=== PATIENT | male | born 1935 | race Caucasian/White ===

== ENCOUNTER 2017-06-03 10:32 | Inpatient (IN) | payer MEDICARE, OTHER ==
[2017-06-03] MEDS ORDERED: PEG 400/Propylene Glycol Ophth Soln 15 ML Bottle EYERT PRN (14:00)
[2017-06-03] MEDS: Acetaminophen 325 MG Tab PO SCH ×2 (14:41→20:58)
[2017-06-03] MEDS: oxyCODONE 5 MG Tab PO PRN (15:46)
[2017-06-03] MEDS ORDERED: Aluminum Hydroxide/Magnesium Hydroxide Susp 30 ML Cup PO PRN (17:12)
[2017-06-03] MEDS: metFORMIN 500 MG Tab.ER PO SCH (18:39)
[2017-06-03] MEDS: Finasteride 5 MG Tab PO SCH (20:58)
[2017-06-03] MEDS: atorvaSTATin 40 MG Tab PO SCH (20:58)
[2017-06-03] MEDS: Aspirin 325 MG Tab.EC PO SCH (20:59)
[2017-06-03] MEDS: ClonazePAM 0.5 MG Tab PO SCH (20:59)
[2017-06-03] MEDS: Sertraline 50 MG Tab PO SCH (21:00)
[2017-06-04] MEDS: oxyCODONE 5 MG Tab PO PRN ×2 (00:34→07:04)
[2017-06-04] MEDS: Acetaminophen 325 MG Tab PO SCH ×4 (01:26→19:08)
[2017-06-04] MEDS: Pantoprazole 40 MG Tab.CR PO SCH (05:42)
[2017-06-04] MEDS: metFORMIN 500 MG Tab.ER PO SCH ×2 (08:01→17:29)
[2017-06-04] MEDS: Celecoxib 200 MG Cap PO SCH (08:01)
[2017-06-04] MEDS: Aspirin 325 MG Tab.EC PO SCH ×2 (08:03→21:04)
[2017-06-04] MEDS: Propranolol 60 MG Cap.ER PO SCH (08:04)
[2017-06-04] MEDS: Tamsulosin 0.4 MG Cap.ER PO SCH (08:04)
[2017-06-04] MEDS: Sertraline 100 MG Tab PO SCH (08:06)
[2017-06-04] MEDS: Multivitamins, Therapeutic with Minerals Tab PO SCH (08:06)
[2017-06-04] MEDS: Insulin Detemir 100 Units/ML 3 ML Pen SUBCUT SCH (08:48)
[2017-06-04] MEDS: ClonazePAM 0.5 MG Tab PO SCH ×2 (08:48→21:07)
--- NOTE | 2017-06-04 08:51 | PCM.HP ---
H&P History of Present Illness - General Date of Service: 06/04/17 Admit Problem/Dx: Admission Diagnosis/Problem Admission Diagnosis/Problem Knee pain Source of Information: Patient History Limitations: Reports: No Limitations - History of Present Illness Initial Comments - Free Text/Narative: 81-year-old male admitted to swing bed yesterday for rehabilitation. He had right hip arthroplasty. Postoperatively he had anemia which did not need transfusion, and hypertension necessitating holding off on lisinopril hydrocodone Dyazide. He has a history of chronic disease stable, essential hypertension stable fibromyalgia long-standing, occasional headaches and essential tremors. These have all been well controlled. This morning he complains of constipation likely due to opioid use,would like to continue with MiraLAX DENIES ANY PAIN AT PRESENT TIME WHEN ASKED. Pain Score (Numeric/FACES): 0 GI pain Pain Score (Numeric/FACES): 5 R knee Pain Score (Numeric/FACES): 4 - Related Data Allergies/Adverse Reactions: Allergies Allergy/AdvReac Type Severity Reaction Status Date / Time No Known Allergies Allergy Verified 06/03/17 10:46 Home Medications: Home Meds Multivit-Min/FA/Lycopene/Lut [Centrum Silver Tablet] 1 tab PO DAILY 07/30/16 [ History] Propranolol [Inderal LA] 120 mg PO DAILY 07/30/16 [History] Propylene Glycol/PEG 400/Pf [Systane 0.3-0.4% Eye Drops] 1 drop EYERT Q4HR PRN 07/30/16 [History] Sertraline [Zoloft] 100 mg PO DAILY 07/30/16 [History] amLODIPine [Norvasc] 5 mg PO DAILY 07/30/16 [History] Acetaminophen [Tylenol] 650 mg PO Q6H 06/03/17 [History] Aspirin [Ecotrin] 325 mg PO BID 06/03/17 [History] Celecoxib 200 mg PO DAILY 06/03/17 [History] ClonazePAM [KlonoPIN] 0.5 mg PO BID 06/03/17 [History] Finasteride 5 mg PO BEDTIME 06/03/17 [History] Insulin Glarg,Human.Rec.Analog [LantUS Solostar] 10 unit SUBCUT DAILY 06/03/17 [ History] Pantoprazole Sodium [Protonix] 40 mg PO DAILY 06/03/17 [History] Sennosides/Docusate Sodium [Senna-Docusate Sodium] 1 each PO BID 06/03/17 [ History] Sertraline [Zoloft] 50 mg PO BEDTIME 06/03/17 [History] Tamsulosin [Tamsulosin 24 Hr] 0.4 mg PO DAILY 06/03/17 [History] atorvaSTATin [Lipitor] 40 mg PO BEDTIME 06/03/17 [History] metFORMIN [Glucophage XR] 500 mg PO BIDMEALS 06/03/17 [History] oxyCODONE 5 mg PO Q4H PRN 06/03/17 [History] Past Medical History HEENT History: Reports: Cataract, Epistaxis, Impaired Vision, Sinusitis Cardiovascular History: Reports: Angina, Arrhythmia, CAD, Heart Failure, High Cholesterol, Hypertension, [place] Respiratory History: Reports: SOB, Other (See Below) Other Respiratory History: 2 X'S PNEUMONIA Gastrointestinal History: Reports: GERD, Hemorrhoids Musculoskeletal History: Reports: Back Pain, Chronic Neurological History: Reports: Other (See Below) Other Neuro History: TREMORS Endocrine/Metabolic History: Reports: Diabetes, Type II, Obesity/BMI 30+ Oncologic (Cancer) History: Reports: Squamous Cell Carcinoma, Other (See Below) Other Oncologic History: 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 VOICED SOME EYE SURGERIES ALSO ON EYE LIDS. Cardiovascular Surgical History: Reports: Coronary Artery Bypass Respiratory Surgical History: Reports: None GI Surgical History: Reports: Appendectomy, Cholecystectomy, Colonoscopy, EGD, Hernia Repair/Other Male Surgical History: Reports: Other (See Below) Other Endocrine Surgeries/Procedures: PT ON PILLS FOR DIABETES Neurological Surgical History: Reports: Laminectomy Musculoskeletal Surgical History: Reports: Hip Replacement, Other (See Below) Other Musculoskeletal Surgeries/Procedures:: LAMINECTOMY ON BACK Other Oncologic Surgeries/Procedures: REMOVED THE SPOT OFF LEFT HAND Social & Family History - Family History Family Medical History: Noncontributory - Tobacco Use Smoking Status *Q: Former Smoker Used Tobacco, but Quit: Yes Month Tobacco Last Used: 1957 - Caffeine Use Caffeine Use: Reports: None - Alcohol Use Days Per Week of Alcohol Use: 0 - Recreational Drug Use Recreational Drug Use: No H&P Review of Systems - Review of Systems: Review Of Systems: ROS reveals no pertinent complaints other than HPI. Exam - Exam Exam: See Below - Vital Signs Vital Signs: Last Vital Signs Temp 98.3 F 06/04/17 07:57 Pulse 62 06/04/17 07:57 Resp 15 06/04/17 07:57 BP 103/45 L 06/04/17 07:57 Pulse Ox 100 06/04/17 07:57 Weight: 94.971 kg - Exam General: Alert, Oriented, 4 HEENT: PERRLA, Hearing Intact, Mucosa Moist & [place], Nares Patent, Normal Nasal Septum, Posterior Pharynx Clear, Conjunctiva Clear, EOMI, EACs Clear, TMs Clear Neck: Supple, Trachea Midline, 2 Lungs: Clear to Auscultation, Normal Respiratory Effort Cardiovascular: Regular Rate, Regular Rhythm GI/Abdominal Exam: Normal Bowel Sounds, Soft, Non-Tender, No Organomegaly, No Distention, No Abnormal Bruit, No Mass, Pelvis Stable (Male) Exam: No Hernia, Normal Inspection, Normal Prostate, Circumcised Rectal (Males) Exam: Normal Exam, Normal Rectal Tone, Prostate Normal Back Exam: Normal Inspection, Full Range of Motion, NT Extremities: Normal Inspection, Normal Range of Motion, Non-Tender, No Pedal Edema, Normal Capillary Refill Skin: Warm, Dry, Intact Neurological: Cranial Nerves Intact, Reflexes Equal Bilateral Neuro Extensive - Mental Status: Alert, Oriented x3, Normal Mood/Affect, Normal Cognition Neuro Extensive - Motor, Sensory, Reflexes: CN II-XII Intact, Normal Gait, Normal Reflexes Psychiatric: Alert, Normal Affect, Normal Mood *Q Meaningful Use (ADM) - VTE *Q VTE Criteria *Q: - Stroke *Q Stroke Criteria *Q: - AMI *Q AMI Criteria *Q: - Problem List (1) S/P total hip arthroplasty SNOMED Code(s): 308453019592 ICD Code: Z96.649 - PRESENCE OF UNSPECIFIED ARTIFICIAL HIP JOINT Status: Acute Current Visit: Yes Qualifiers: Laterality: right Qualified Code(s): Z96.641 - Presence of right artificial hip joint (2) Anemia due to blood loss, acute SNOMED Code(s): 029386495 ICD Code: D62 - ACUTE POSTHEMORRHAGIC ANEMIA Status: Acute Current Visit : Yes (3) Postoperative hypotension SNOMED Code(s): 608425769 ICD Code: I95.89 - OTHER HYPOTENSION Status: Acute Current Visit: Yes (4) Constipation SNOMED Code(s): 02026567 ICD Code: K59.00 - CONSTIPATION, UNSPECIFIED Status: Chronic Current Visit: Yes Qualifiers: Constipation type: drug induced constipation Qualified Code(s): K59.03 - Drug induced constipation (5) Fibromyalgia SNOMED Code(s): 499214237 ICD Code: M79.7 - FIBROMYALGIA Status: Chronic Current Visit: Yes (6) S/P CABG (coronary artery bypass graft) SNOMED Code(s): 200686120 ICD Code: Z95.1 - PRESENCE OF AORTOCORONARY BYPASS GRAFT Status: Chronic Current Visit: Yes (7) CAD (coronary artery disease) SNOMED Code(s): 56322950 ICD Code: I25.10 - ATHSCL HEART DISEASE OF [place] CORONARY ARTERY W/O ANG PCTRS Status: Chronic Current Visit: Yes Qualifiers: Coronary Disease-Associated Artery/Lesion type: bypass graft (8) HTN (hypertension) SNOMED Code(s): 42333497 ICD Code: I10 - ESSENTIAL (PRIMARY) HYPERTENSION Status: Chronic Current Visit: Yes Qualifiers: Hypertension type: essential hypertension Qualified Code(s): I10 - Essential (primary) hypertension (9) HLD (hyperlipidemia) SNOMED Code(s): 76386492 ICD Code: E78.5 - HYPERLIPIDEMIA, UNSPECIFIED Status: Acute Current Visit : Yes Qualifiers: Hyperlipidemia type: other hyperlipidemia Qualified Code(s): E78.4 - Other hyperlipidemia (10) Gastritis SNOMED Code(s): 1749657 ICD Code: K29.70 - GASTRITIS, UNSPECIFIED, WITHOUT BLEEDING Status: Acute Current Visit: No Qualifiers: Gastritis type: unspecified gastritis Gastritis bleeding: without bleeding Problem List Initiated/Reviewed/Updated: Yes Orders Last 24hrs: Active Orders 24 hr Category Date Time Status Patient Status [ADT] Routine ADT 06/03/17 13:29 Active Height and Weight [RC] TU Care 06/03/17 13:29 Active Oxygen Therapy [RC] PRN Care 06/03/17 13:29 Active Up With Assistance [RC] ASDIRECTED Care 06/03/17 13:29 Active Vital Signs [RC] PER UNIT ROUTINE Care 06/03/17 13:29 Active OT Evaluation and Treatment [CONS] Routine Cons 06/03/17 13:29 Active PT Evaluation and Treatment [CONS] Routine Cons 06/03/17 13:29 Active Acetaminophen [Tylenol] Med 06/03/17 14:00 Active 650 mg PO Q6H Alum Hydroxide/Mag Hydroxide [Mag-Al Susp] Med 06/03/17 17:12 Active 30 ml PO Q4H PRN Aspirin [Ecotrin] Med 06/03/17 21:00 Active 325 mg PO BID Celecoxib [CeleBREX] Med 06/04/17 08:00 Active 200 mg PO WITHBREAKFAST ClonazePAM [KlonoPIN] Med 06/03/17 21:00 Active 0.5 mg PO BID Docusate Sodium/Sennosides [Senna Plus] Med 06/03/17 21:00 Active 1 tab PO BID Finasteride [Proscar] Med 06/03/17 21:00 Active 5 mg PO BEDTIME Insulin Detemir [Levemir] Med 06/04/17 09:00 Active 10 unit SUBCUT DAILY Multivitamins/Minerals [Vitamins and Minerals] Med 06/04/17 09:00 Active 1 tab PO DAILY PEG 400/Propylene Glycol [Systane Lubricant] Med 06/03/17 14:00 Active 0 ml EYERT Q4H PRN Pantoprazole [ProTONIX] Med 06/04/17 06:00 Active 40 mg PO DAILY@0600 Propranolol [Inderal LA] Med 06/04/17 09:00 Active 120 mg PO DAILY Sertraline [Zoloft] Med 06/04/17 09:00 Active 100 mg PO DAILY Sertraline [Zoloft] Med 06/03/17 21:00 Active 50 mg PO BEDTIME Tamsulosin [Flomax] Med 06/04/17 09:00 Active 0.4 mg PO DAILY amLODIPine [Norvasc] Med 06/04/17 09:00 Active 5 mg PO DAILY atorvaSTATin [Lipitor] Med 06/03/17 21:00 Active 40 mg PO BEDTIME metFORMIN [Glucophage XR] Med 06/03/17 18:00 Active 500 mg PO BIDMEALS oxyCODONE Med 06/03/17 13:30 Active 5 mg PO Q4H PRN Resuscitation Status Routine Resus Stat 06/03/17 13:29 Ordered Medication Orders Acetaminophen (Tylenol) 650 mg PO Q6H [facility] Last Admin: 06/04/17 08:01 Dose: 650 mg Admin: 06/04/17 01:26 Dose: Not Given Admin: 06/03/17 20:58 Dose: 650 mg Admin: 06/03/17 14:41 Dose: 650 mg Al Hydroxide/Mg Hydroxide (Mag-Al Susp) 30 ml PO Q4H PRN PRN Reason: Heartburn Last Admin: 06/03/17 17:33 Dose: 30 ml Amlodipine Besylate (Norvasc) 5 mg PO DAILY [facility] Aspirin (Ecotrin) 325 mg PO BID [facility] Last Admin: 06/04/17 08:03 Dose: 325 mg Admin: 06/03/17 20:59 Dose: 325 mg Atorvastatin Calcium (Lipitor) 40 mg PO BEDTIME [facility] Last Admin: 06/03/17 20:58 Dose: 40 mg Celecoxib (Celebrex) 200 mg PO WITHBREAKFAST [facility] Last Admin: 06/04/17 08:01 Dose: 200 mg Clonazepam (Klonopin) 0.5 mg PO BID [facility] Last Admin: 06/03/17 20:59 Dose: 0.5 mg Finasteride (Proscar) 5 mg PO BEDTIME [facility] Last Admin: 06/03/17 20:58 Dose: 5 mg Insulin Detemir (Levemir) 10 unit SUBCUT DAILY [facility] Metformin HCl (Glucophage Xr) 500 mg PO BIDMEALS [facility] Last Admin: 06/04/17 08:01 Dose: 500 mg Admin: 06/03/17 18:39 Dose: 500 mg Multivitamins/Minerals (Vitamins And Minerals) 1 tab PO DAILY [facility] Last Admin: 06/04/17 08:06 Dose: 1 tab Oxycodone HCl (Oxycodone) 5 mg PO Q4H PRN PRN Reason: Pain Last Admin: 06/04/17 07:04 Dose: 5 mg Admin: 06/04/17 00:34 Dose: 5 mg Admin: 06/03/17 15:46 Dose: 5 mg Pantoprazole Sodium (Protonix) 40 mg PO DAILY@0600 [facility] Last Admin: 06/04/17 05:42 Dose: 40 mg Propranolol HCl (Inderal La) 120 mg PO DAILY [facility] Last Admin: 06/04/17 08:04 Dose: 120 mg Propylene Glycol (Systane Lubricant) 0 ml EYERT Q4H PRN PRN Reason: DRY EYE Senna/Docusate Sodium (Senna Plus) 1 tab PO BID [facility] Last Admin: 06/04/17 08:06 Dose: Not Given Admin: 06/03/17 20:58 Dose: 1 tab Sertraline HCl (Zoloft) 50 mg PO BEDTIME [facility] Last Admin: 06/03/17 21:00 Dose: 50 mg Sertraline HCl (Zoloft) 100 mg PO DAILY [facility] Last Admin: 06/04/17 08:06 Dose: 100 mg Tamsulosin HCl (Flomax) 0.4 mg PO DAILY [facility] Last Admin: 06/04/17 08:04 Dose: 0.4 mg Assessment/Plan Comment:: Admit to transitional care, with physical and occupational therapy. Hold off on Norvasc, due to low blood pressure. Continue the MiraLAX and the previous medications from [facility].
[2017-06-04] MEDS ORDERED: amLODIPine 5 MG Tab PO SCH (09:00)
[2017-06-04] MEDS ORDERED: Polyethylene Glycol 3350 Powder 17 GM Packet PO PRN (09:08)
[2017-06-04] MEDS: Finasteride 5 MG Tab PO SCH (21:04)
[2017-06-04] MEDS: Sertraline 50 MG Tab PO SCH (21:04)
[2017-06-04] MEDS: atorvaSTATin 40 MG Tab PO SCH (21:04)
[2017-06-05] MEDS: oxyCODONE 5 MG Tab PO PRN (00:46)
[2017-06-05] MEDS: Acetaminophen 325 MG Tab PO SCH ×4 (01:08→19:55)
[2017-06-05] MEDS: Pantoprazole 40 MG Tab.CR PO SCH (06:35)
[2017-06-05] MEDS: Celecoxib 200 MG Cap PO SCH (07:56)
[2017-06-05] MEDS: metFORMIN 500 MG Tab.ER PO SCH ×2 (07:57→18:24)
[2017-06-05] MEDS: Tamsulosin 0.4 MG Cap.ER PO SCH (09:16)
[2017-06-05] MEDS: Aspirin 325 MG Tab.EC PO SCH ×2 (09:16→20:32)
[2017-06-05] MEDS: Propranolol 60 MG Cap.ER PO SCH (09:16)
[2017-06-05] MEDS: Insulin Detemir 100 Units/ML 3 ML Pen SUBCUT SCH (09:18)
[2017-06-05] MEDS: Multivitamins, Therapeutic with Minerals Tab PO SCH (09:19)
[2017-06-05] MEDS: Sertraline 100 MG Tab PO SCH (09:20)
[2017-06-05] MEDS: ClonazePAM 0.5 MG Tab PO SCH ×2 (09:26→20:32)
[2017-06-05] MEDS ORDERED: Loperamide 2 MG Cap PO PRN (18:43)
[2017-06-05] MEDS ORDERED: Loperamide 2 MG Cap PO ONE (18:43)
[2017-06-05] MEDS: atorvaSTATin 40 MG Tab PO SCH (20:33)
[2017-06-05] MEDS: Finasteride 5 MG Tab PO SCH (20:33)
[2017-06-05] MEDS: Sertraline 50 MG Tab PO SCH (20:33)
[2017-06-06] MEDS: oxyCODONE 5 MG Tab PO PRN ×3 (00:11→22:55)
[2017-06-06] MEDS: Acetaminophen 325 MG Tab PO SCH ×4 (01:49→20:21)
[2017-06-06] MEDS: Pantoprazole 40 MG Tab.CR PO SCH (06:06)
[2017-06-06] MEDS: metFORMIN 500 MG Tab.ER PO SCH ×2 (08:10→18:16)
[2017-06-06] MEDS: Celecoxib 200 MG Cap PO SCH (08:10)
[2017-06-06] MEDS: Aspirin 325 MG Tab.EC PO SCH ×2 (08:11→20:59)
[2017-06-06] MEDS: Tamsulosin 0.4 MG Cap.ER PO SCH (08:11)
[2017-06-06] MEDS: Propranolol 60 MG Cap.ER PO SCH (08:12)
[2017-06-06] MEDS: Multivitamins, Therapeutic with Minerals Tab PO SCH (08:12)
[2017-06-06] MEDS: Sertraline 100 MG Tab PO SCH (08:13)
[2017-06-06] MEDS: Insulin Detemir 100 Units/ML 3 ML Pen SUBCUT SCH (08:13)
[2017-06-06] MEDS: ClonazePAM 0.5 MG Tab PO SCH ×2 (08:24→20:58)
[2017-06-06] MEDS: Finasteride 5 MG Tab PO SCH (20:58)
[2017-06-06] MEDS: atorvaSTATin 40 MG Tab PO SCH (20:58)
[2017-06-06] MEDS: Sertraline 50 MG Tab PO SCH (20:58)
[2017-06-07] MEDS: Acetaminophen 325 MG Tab PO SCH ×3 (02:25→20:14)
[2017-06-07] MEDS: Pantoprazole 40 MG Tab.CR PO SCH (06:11)
[2017-06-07] MEDS: oxyCODONE 5 MG Tab PO PRN ×2 (06:12→23:45)
[2017-06-07] MEDS: Celecoxib 200 MG Cap PO SCH (08:08)
[2017-06-07] MEDS: metFORMIN 500 MG Tab.ER PO SCH (08:08)
[2017-06-07] MEDS: Tamsulosin 0.4 MG Cap.ER PO SCH (08:55)
[2017-06-07] MEDS: Insulin Detemir 100 Units/ML 3 ML Pen SUBCUT SCH (08:55)
[2017-06-07] MEDS: Aspirin 325 MG Tab.EC PO SCH ×2 (08:55→20:14)
[2017-06-07] MEDS: Propranolol 60 MG Cap.ER PO SCH (08:55)
[2017-06-07] MEDS: ClonazePAM 0.5 MG Tab PO SCH ×2 (08:58→20:17)
[2017-06-07] MEDS: Sertraline 100 MG Tab PO SCH (09:03)
[2017-06-07] MEDS: Multivitamins, Therapeutic with Minerals Tab PO SCH (09:03)
--- NOTE | 2017-06-07 12:43 | PN ---
DATE SEEN: 06/07/2017 SUBJECTIVE: Noel Garg is a delightful 81-year-old male, admitted to [facility] for postoperative care. Underwent right total hip arthroplasty at [place] in [place]. Has been doing well. Concerns about his diabetes medicines, under concern. Had been on metformin 500 mg b.i.d. throughout his stay, good control. Last A1c 6.0, was discharged home on Levemir. The patient requests alteration in that regard. Pain has been well controlled, plan for discharge on 06/10. OBJECTIVE: VITAL SIGNS: 37.1, 61, 134/69, 16, 100% O2. GENERAL: In good spirits. NECK: Benign. Thyroid small. CHEST: Clear in all lung calvin. HEART: Regular without ectopy or murmur. ABDOMEN: Benign. Hip surgical scar intact. ASSESSMENT: Postoperative rehab, right total hip arthroplasty. PLAN: If all looks well, we will discontinue his insulin, we will change metformin from 500 mg b.i.d. to 850 b.i.d., complementary care and well being. /[id number] MODE/MARQUISE
[2017-06-07] MEDS: Sertraline 50 MG Tab PO SCH (20:13)
[2017-06-07] MEDS: Finasteride 5 MG Tab PO SCH (20:14)
[2017-06-07] MEDS: atorvaSTATin 40 MG Tab PO SCH (20:14)
[2017-06-07] MEDS ORDERED: Ondansetron 4 MG Tab.DIS PO PRN (21:03)
[2017-06-08] MEDS: Acetaminophen 325 MG Tab PO SCH ×4 (01:42→20:11)
[2017-06-08] MEDS: oxyCODONE 5 MG Tab PO PRN ×2 (05:49→19:16)
[2017-06-08] MEDS: Pantoprazole 40 MG Tab.CR PO SCH (05:50)
[2017-06-08] MEDS: Celecoxib 200 MG Cap PO SCH (07:37)
[2017-06-08] MEDS: Aspirin 325 MG Tab.EC PO SCH ×2 (08:19→20:12)
[2017-06-08] MEDS: Tamsulosin 0.4 MG Cap.ER PO SCH (08:20)
[2017-06-08] MEDS: Propranolol 60 MG Cap.ER PO SCH (08:20)
[2017-06-08] MEDS: Multivitamins, Therapeutic with Minerals Tab PO SCH (08:25)
[2017-06-08] MEDS: Sertraline 100 MG Tab PO SCH (08:26)
[2017-06-08] MEDS: ClonazePAM 0.5 MG Tab PO SCH ×2 (09:35→20:12)
--- NOTE | 2017-06-08 11:58 | PN ---
DATE SEEN: 06/08/2017 SUBJECTIVE: Noel Garg is an 81-year-old male, in swing bed. He underwent right total knee arthroplasty. Transferred for care and management. Doing remarkably well. Ambulating comfortably. Pain is controlled, able to do daily cares with good success. Postoperative anemia present. We will check hemoglobin today for that stability. OBJECTIVE: GENERAL: Wound is healing well. No complicating issues. Moderate erythema. CHEST: Clear. HEART: Regular. ABDOMEN: Benign. Postoperative care, right total hip arthroplasty. PLAN: Adjustments of diabetes medicines have been obtained from 500 mg b.i.d. to 850 b.i.d. complementary care and well being, continue care and management. /[id number] MODE/MARQUISE
[2017-06-08] MEDS: Finasteride 5 MG Tab PO SCH (20:12)
[2017-06-08] MEDS: atorvaSTATin 40 MG Tab PO SCH (20:12)
[2017-06-08] MEDS: Sertraline 50 MG Tab PO SCH (20:13)
[2017-06-09] MEDS: Acetaminophen 325 MG Tab PO SCH ×5 (02:42→20:15)
[2017-06-09] MEDS: oxyCODONE 5 MG Tab PO PRN ×2 (02:43→21:34)
[2017-06-09] MEDS: Pantoprazole 40 MG Tab.CR PO SCH (06:55)
[2017-06-09] MEDS: Multivitamins, Therapeutic with Minerals Tab PO SCH (08:37)
[2017-06-09] MEDS: ClonazePAM 0.5 MG Tab PO SCH ×2 (08:37→20:15)
[2017-06-09] MEDS: Tamsulosin 0.4 MG Cap.ER PO SCH (08:37)
[2017-06-09] MEDS: Aspirin 325 MG Tab.EC PO SCH ×2 (08:38→20:15)
[2017-06-09] MEDS: Celecoxib 200 MG Cap PO SCH (08:38)
[2017-06-09] MEDS: Propranolol 60 MG Cap.ER PO SCH (08:39)
[2017-06-09] MEDS: Sertraline 100 MG Tab PO SCH (08:41)
--- NOTE | 2017-06-09 11:11 | PN ---
DATE SEEN: 06/09/2017 SUBJECTIVE: Noel Garg is an 81-year-old male seen today for routine care swing bed. Doing well. Remarkable improvement, pain is controlled. Active and appropriate. Self skills are satisfactory. Medications have been adjusted accordingly. Wound was examined. No complicating issues. Steri-Strips and subcuticular incision in good condition. Rehab care, right total hip arthroplasty. PLAN: Discharge home tomorrow. /[id number] MODE/MARQUISE
[2017-06-09] MEDS: Finasteride 5 MG Tab PO SCH (20:15)
[2017-06-09] MEDS: atorvaSTATin 40 MG Tab PO SCH (20:15)
[2017-06-09] MEDS: Sertraline 50 MG Tab PO SCH (20:16)
[2017-06-10] MEDS: oxyCODONE 5 MG Tab PO PRN ×2 (02:02→06:03)
[2017-06-10] MEDS: Pantoprazole 40 MG Tab.CR PO SCH (06:03)
[2017-06-10] MEDS: Acetaminophen 325 MG Tab PO SCH ×2 (06:05→08:17)
[2017-06-10] MEDS: Multivitamins, Therapeutic with Minerals Tab PO SCH (08:17)
[2017-06-10] MEDS: ClonazePAM 0.5 MG Tab PO SCH (08:18)
[2017-06-10] MEDS: Tamsulosin 0.4 MG Cap.ER PO SCH (08:18)
[2017-06-10] MEDS: Celecoxib 200 MG Cap PO SCH (08:18)
[2017-06-10] MEDS: Propranolol 60 MG Cap.ER PO SCH (08:18)
[2017-06-10] MEDS: Sertraline 100 MG Tab PO SCH (08:18)
[2017-06-10] MEDS: Aspirin 325 MG Tab.EC PO SCH (08:18)
[2017-06-10 08:31] VITALS: BP 117/61
--- NOTE | 2017-06-11 06:04 | DISCH ---
DISCHARGE DATE: 06/10/2017 DISCHARGE DIAGNOSIS: Right total hip arthroplasty, rehab care. HOSPITAL COURSE: Noel Garg is an 81-year-old male, admitted to [facility] swing bed for post rehab. He underwent right total hip arthroplasty under the care of Dr. Serafin Brown at [facility]. He had mild postoperative anemia, blood sugar control, and was discharged with short-term therapy. While at [facility], he underwent aggressive physical therapy, PT-OT, ambulatory skills, pain control, and was comfortable during this stay. Hemoglobin on 06/08/2017 was 9.3 and hematocrit was 27.9. His wound was examined throughout his short-term rehab stay. No complicating issues. Steri-Strips are in place. Wound is healing well. No ecchymosis or issues of consequence. He did well on occasional doses of short-acting narcotics. His metformin was switched from 500 mg b.i.d. to 500 t.i.d., after initial inpatient stay at [facility] had added insulin. The patient requested oral medications, rather than insulin. CONDITION ON DISCHARGE: At the time of discharge, the patient's ambulatory skills were satisfactory, everyone was happy with his outcome, and outpatient therapy and Home Health are in place. SURGICAL PROCEDURES: None. CONSULTATIONS: None. DISCHARGE MEDICATIONS: Please see med reconciliation list. /[id number] MODE/MARQUISE GARCIA
== END 2017-06-10 11:06 | disposition home or self-care (01) | DRG 560 ==
LOC: FB.MS 12:16
PROVIDERS: ADMIT Family Medicine; ATTEND Family Medicine
DX: Z47.1 Aftercare following joint replacement surgery (principal); D62 Acute posthemorrhagic anemia; Z96.641 Presence of right artificial hip joint; Z98.890 Other specified postprocedural states; M79.7 Fibromyalgia; I95.89 Other hypotension; K59.03 Drug induced constipation; E11.9 Type 2 diabetes mellitus without complications; M54.9 Dorsalgia, unspecified; G89.29 Other chronic pain; K21.9 Gastro-esophageal reflux disease without esophagitis; Z79.4 Long term (current) use of insulin; E78.5 Hyperlipidemia, unspecified; I25.2 Old myocardial infarction; I25.10 Atherosclerotic heart disease of native coronary artery without angina pectoris; H54.7 Unspecified visual loss; Z95.1 Presence of aortocoronary bypass graft; Z87.891 Personal history of nicotine dependence; Z79.82 Long term (current) use of aspirin; Z85.828 Personal history of other malignant neoplasm of skin; Z96.649 Presence of unspecified artificial hip joint
CPT/HCPCS: 36415; 82962; 85014; 85018; 97110-GO; 97110-GP; 97112-GP; 97116-GP; 97161-GP; 97165-GO; 97530-GO; 97530-GO-KX; 97530-GP; 97535-GO; A9270; A9270-GY

== ENCOUNTER 2019-04-02 20:42 | Emergency (ER) | payer MEDICARE, OTHER ==
--- NOTE | 2019-04-02 21:00 | EDM.PDOC ---
ED HPI GENERAL MEDICAL PROBLEM - General Chief Complaint: Back Pain or Injury Stated Complaint: back pain Time Seen by Provider: 04/02/19 20:42 Source of Information: Reports: Patient History Limitations: Reports: No Limitations - History of Present Illness INITIAL COMMENTS - FREE TEXT/NARRATIVE: 83 y.o.w.m S/P recent low back surgery, came to the ED because of low back pain and "not feeling right". Pt requested the surgical drain tube to be removed 3 days earlier to go home after surgery sooner. Pt is taking currently oxycodone for pain and had no BM since surgery. He felt "pressure is building up" at his surgical side where the surgical drain tube was removed. No N/V/D. Pt has some burning sensation when voiding. No Trauma. No SOB or chest pain. No Stool or urine incontinence. No F/C or any other acute med issues. BP 133/46 RR 18 Pulse ox 99% on RA Pulse 66 Temp 36.8 Onset Date: 04/02/19 Onset Time: 06:00 Duration: Hour(s):, Day(s):, Week(s):, Intermittent Location: Reports: Face, Back Quality: Reports: Dull, Pressure, Same as Previous Episode Severity: Mild Improves with: Reports: Rest Worsens with: Reports: Movement Context: Reports: Other (Back surgery) Treatments KNOCKUP WORKER: Reports: Acetaminophen, Other Medication(s) Other Treatments KNOCKUP WORKER: Oxycodone Lower back Pain Score (Numeric/FACES): 10 - Related Data Allergies Allergy/AdvReac Type Severity Reaction Status Date / Time No Known Allergies Allergy Verified 04/02/19 20:53 Home Meds: Home Meds Sertraline [Zoloft] 100 mg PO DAILY 07/30/16 [History] amLODIPine [Norvasc] 5 mg PO DAILY 07/30/16 [History] Acetaminophen [Tylenol] 650 mg PO Q6H 06/03/17 [History] Celecoxib 200 mg PO DAILY 06/03/17 [History] ClonazePAM [KlonoPIN] 0.5 mg PO BID 06/03/17 [History] Finasteride 5 mg PO BEDTIME 06/03/17 [History] Pantoprazole Sodium [Protonix] 40 mg PO DAILY 06/03/17 [History] Tamsulosin [Flomax] 0.4 mg PO DAILY 06/03/17 [History] atorvaSTATin [Lipitor] 40 mg PO BEDTIME 06/03/17 [History] PEG 400/Propylene Glycol [Systane Lubricant] 0 ml EYERT Q4H PRN bottle [Rx] Polyethylene Glycol 3350 [MiraLAX] 17 gm PO BEDTIME PRN packet 06/10/17 [Rx] Propranolol [Inderal LA] 120 mg PO DAILY cap.er 06/10/17 [Rx] metFORMIN [Glucophage] 850 mg PO BIDMEALS #180 tablet 06/10/17 [Rx] hydroCHLOROthiazide [Hydrochlorothiazide] 12.5 mg PO DAILY 04/02/19 [History] oxyCODONE 5 mg PO Q4H PRN 04/02/19 [History] Ciprofloxacin HCl [Cipro] 500 mg PO BID #20 tablet 04/03/19 [Rx] Ofloxacin 0.1 ml OT Q8HR #10 drops 04/03/19 [Rx] Past Medical History HEENT History: Reports: Cataract, Epistaxis, Impaired Vision, Sinusitis Cardiovascular History: Reports: Angina, Arrhythmia, CAD, Heart Failure, High Cholesterol, Hypertension, [place] Respiratory History: Reports: SOB, Other (See Below) Other Respiratory History: 2 X'S PNEUMONIA Gastrointestinal History: Reports: GERD, Hemorrhoids Musculoskeletal History: Reports: Back Pain, Chronic Neurological History: Reports: Other (See Below) Other Neuro History: TREMORS Endocrine/Metabolic History: Reports: Diabetes, Type II, Obesity/BMI 30+ Oncologic (Cancer) History: Reports: Squamous Cell Carcinoma, Other (See Below) Other Oncologic History: 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 VOICED SOME EYE SURGERIES ALSO ON EYE LIDS. Cardiovascular Surgical History: Reports: Coronary Artery Bypass Respiratory Surgical History: Reports: None GI Surgical History: Reports: Appendectomy, Cholecystectomy, Colonoscopy, EGD, Hernia Repair/Other Male Surgical History: Reports: Other (See Below) Other Endocrine Surgeries/Procedures: PT ON PILLS FOR DIABETES Neurological Surgical History: Reports: Laminectomy Musculoskeletal Surgical History: Reports: Hip Replacement, Other (See Below) Other Musculoskeletal Surgeries/Procedures:: LAMINECTOMY ON BACK Other Oncologic Surgeries/Procedures: REMOVED THE SPOT OFF LEFT HAND Social & Family History - Family History Family Medical History: Noncontributory - Caffeine Use Caffeine Use: Reports: None ED ROS GENERAL - Review of Systems Review Of Systems: See Below Constitutional: Reports: Weakness HEENT: Reports: No Symptoms Respiratory: Reports: No Symptoms Cardiovascular: Reports: No Symptoms Endocrine: Reports: No Symptoms GI/Abdominal: Reports: No Symptoms : Reports: Dysuria Musculoskeletal: Reports: Back Pain Skin: Reports: No Symptoms Neurological: Reports: No Symptoms Psychiatric: Reports: No Symptoms Hematologic/Lymphatic: Reports: No Symptoms Immunologic: Reports: No Symptoms ED EXAM,LOWER BACK PAIN/INJURY - Physical Exam Exam: See Below Exam Limited By: No Limitations General Appearance: Alert, WD/WN, Mild Distress Eye Exam: Bilateral Eye: Normal Inspection Ears: Other (Otitis externa lrft ear) Nose: Normal Inspection, Normal Mucosa, No Blood Throat/Mouth: Normal Inspection, Normal Lips, Normal Voice, No Airway Compromise Head: Atraumatic, Normocephalic Neck: Normal Inspection, Supple, Non-Tender Respiratory/Chest: No Respiratory Distress, Lungs Clear, Normal Breath Sounds, Chest Non-Tender Cardiovascular: Normal Peripheral Pulses, Regular Rate, Rhythm, No Edema GI/Abdominal: Normal Bowel Sounds, Soft, Non-Tender, No Organomegaly, No Mass, Pelvis Stable (Male) Exam: Deferred Rectal (Males) Exam: Deferred Back Exam: Normal Inspection, Full Range of Motion Extremities: Normal Inspection, Normal Range of Motion, Non-Tender, No Pedal Edema, Normal Capillary Refill Neurological: Alert, Normal Mood/Affect, Normal Dorsiflexion, CN II-XII Intact Psychiatric: Normal Affect, Normal Mood Skin Exam: Warm, Dry, Intact, Normal Color, No Rash Lymphatic: No Adenopathy Course - Vital Signs Text/Narrative:: 83 y.o.w.m S/P recent low back surgery, came to the ED because of low back pain and "not feeling right". Pt requested the surgical drain tube to be removed 3 days earlier to go home after surgery sooner. Pt is taking currently oxycodone for pain and had no BM since surgery. He felt "pressure is building up" at his surgical side where the surgical drain tube was removed. No N/V/D. Pt has some burning sensation when voiding. No Trauma. No SOB or chest pain. No Stool or urine incontinence. No F/C or any other acute med issues. BP 133/46 RR 18 Pulse ox 99% on RA Pulse 66 Temp 36.8 PE: WNWD W M, pale, with low back pain. Labs: CBC pos for HGB 8.7 HCT 16.8 BMP: GFR . 60 BUN 20 Mg 1.6 UA: Pos for UTI without Hematuria Impression: Low back pain. UTI, left ext ear infection. Low magnesium Tx: Levaquin, Toradol, ICE Prescriptions for Ofloxacin ear drops and Cipro Reexam: Improved. pt requested to be D/C'd Plan: D/C with instructions Last Recorded V/S: Last Vital Signs Temp 36.8 C 04/02/19 20:42 Pulse 50 L 04/03/19 00:34 Resp 18 04/03/19 00:34 BP 102/44 L 04/03/19 00:34 Pulse Ox 99 04/03/19 00:34 - Orders/Labs/Meds Orders: Active Orders 24 hr Category Date Time Status RETICULOCYTE COUNT Routine Lab 04/02/19 21:05 Received Labs: Laboratory Tests 04/02/19 04/02/19 04/02/19 Range/Units 21:05 21:05 21:05 WBC 11.7 (4.5-12.0) X10-3/uL RBC 3.25 L (4.30-5.75) x10(6)uL Hgb 8.7 L (13.5-17.8) g/dL Hct 26.7 L (30.0-51.3) % MCV 82.0 (80-96) fL MCH 26.6 L (27.7-33.6) pg MCHC 32.5 (32.2-35.4) g/dL RDW 17.9 H (11.5-15.5) % Plt Count 284 (125-369) X10(3)uL MPV 7.5 (7.4-10.4) fL Neut % (Auto) 71.5 (46-82) % Lymph % (Auto) 13.5 (13-37) % Crisp % (Auto) 14.1 H (4-12) % Eos % (Auto) 1 (1.0-5.0) % Baso % (Auto) 0 (0-2) % Neut # (Auto) 8.3 (1.6-8.3) # Lymph # (Auto) 1.6 (0.6-5.0) # Crisp # (Auto) 1.7 H (0.0-1.3) # Eos # (Auto) 0.1 (0.0-0.8) # Baso # (Auto) 0.0 (0.0-0.2) # PT 10.0 (8.7-11.1) INR 1.03 (0.89-1.13) Sodium 137 (135-145) mmol/L Potassium 4.3 (3.5-5.3) mmol/L Chloride 101 (100-110) mmol/L Carbon Dioxide 26 (21-32) mmol/L BUN 20 H (7-18) mg/dL Creatinine 1.1 (0.70-1.30) mg/dL Est Cr Clr Drug Dosing 52.29 mL/min Estimated GFR (MDRD) > 60 (>60) BUN/Creatinine Ratio 18.2 (9-20) Glucose 139 H (80-116) mg/dL Calcium 8.6 (8.6-10.2) mg/dL Magnesium (1.8-2.5) mg/dL Urine Color (YELLOW) Urine Appearance (CLEAR) Urine pH (5.0-6.5) Ur Specific [place] (1.010-1.025) Urine Protein (NEGATIVE) mg/dL Urine Glucose (UA) (NORMAL) mg/dL Urine Ketones (NEGATIVE) mg/dL Urine Occult Blood (NEGATIVE) Urine Nitrite (NEGATIVE) Urine Bilirubin (NEGATIVE) Urine Urobilinogen (NEGATIVE) mg/dL Ur Leukocyte Esterase (NEGATIVE) Urine RBC (0-5) Urine WBC (0-5) Ur Squamous Epith Cells (NS,R,O) Urine Bacteria (NS) Urine Mucus (NS) 04/02/19 04/02/19 Range/Units 21:05 23:15 WBC (4.5-12.0) X10-3/uL RBC (4.30-5.75) x10(6)uL Hgb (13.5-17.8) g/dL Hct (30.0-51.3) % MCV (80-96) fL MCH (27.7-33.6) pg MCHC (32.2-35.4) g/dL RDW (11.5-15.5) % Plt Count (125-369) X10(3)uL MPV (7.4-10.4) fL Neut % (Auto) (46-82) % Lymph % (Auto) (13-37) % Crisp % (Auto) (4-12) % Eos % (Auto) (1.0-5.0) % Baso % (Auto) (0-2) % Neut # (Auto) (1.6-8.3) # Lymph # (Auto) (0.6-5.0) # Crisp # (Auto) (0.0-1.3) # Eos # (Auto) (0.0-0.8) # Baso # (Auto) (0.0-0.2) # PT (8.7-11.1) INR (0.89-1.13) Sodium (135-145) mmol/L Potassium (3.5-5.3) mmol/L Chloride (100-110) mmol/L Carbon Dioxide (21-32) mmol/L BUN (7-18) mg/dL Creatinine (0.70-1.30) mg/dL Est Cr Clr Drug Dosing mL/min Estimated GFR (MDRD) (>60) BUN/Creatinine Ratio (9-20) Glucose (80-116) mg/dL Calcium (8.6-10.2) mg/dL Magnesium 1.6 L (1.8-2.5) mg/dL Urine Color Yellow (YELLOW) Urine Appearance Clear (CLEAR) Urine pH 5.0 (5.0-6.5) Ur Specific [place] 1.015 (1.010-1.025) Urine Protein Trace (NEGATIVE) mg/dL Urine Glucose (UA) Normal (NORMAL) mg/dL Urine Ketones 15 H (NEGATIVE) mg/dL Urine Occult Blood Negative (NEGATIVE) Urine Nitrite Negative (NEGATIVE) Urine Bilirubin Small H (NEGATIVE) Urine Urobilinogen 1 H (NEGATIVE) mg/dL Ur Leukocyte Esterase Small H (NEGATIVE) Urine RBC 0-5 (0-5) Urine WBC 5-10 H (0-5) Ur Squamous Epith Cells Occasional (NS,R,O) Urine Bacteria Few H (NS) Urine Mucus Few H (NS) Meds: Medications Discontinued Medications Generic Name Dose Route Start Last Admin Trade Name Freq PRN Reason Stop Dose Admin Ketorolac Tromethamine 15 mg 04/02/19 21:59 04/02/19 22:13 Toradol IM 04/02/19 22:00 15 mg ONETIME STA Administration Levofloxacin 500 mg 04/03/19 00:26 04/03/19 00:33 Levaquin PO 04/03/19 00:27 500 mg ONETIME ONE Administration Departure - Departure Time of Disposition: 00:31 Disposition: Home, Self-Care 01 Condition: Good Clinical Impression: UTI (urinary tract infection) Qualifiers: Urinary tract infection type: acute cystitis Hematuria presence: without hematuria Qualified Code(s): N30.00 - Acute cystitis without hematuria Otitis externa Qualifiers: Otitis externa type: unspecified type Chronicity: unspecified Laterality: left Qualified Code(s): H60.92 - Unspecified otitis externa, left ear - Discharge Information Prescriptions: Ofloxacin 0.1 ml OT Q8HR #10 drops Ciprofloxacin HCl [Cipro] 500 mg PO BID #20 tablet Instructions: Otitis Externa, [id number], Ketorolac injection, Urinary Tract Infection, Adult, [id number], Levofloxacin tablets Referrals: Boris Mueller MD [Primary Care Provider] - Forms: ED Department Discharge Additional Instructions: Please apply ice to lower back, please increase water intake, please take the medications as recommended, please follow up as needed, come back if your symptoms get worse acutely - My Orders Last 24 Hours: My Active Orders 04/02/19 21:05 RETICULOCYTE COUNT Routine - Assessment/Plan Last 24 Hours: My Active Orders 04/02/19 21:05 RETICULOCYTE COUNT Routine
[2019-04-02] MEDS ORDERED: Ketorolac 30 MG/ML SDV IM STA (21:59)
[2019-04-03] MEDS ORDERED: Levofloxacin 500 MG Tab PO ONE (00:26)
[2019-04-03 00:34] VITALS: BP 102/44; PULSE 50
== END 2019-04-03 00:53 | disposition home or self-care (01) ==
LOC: FB.ED 20:42
DX: N30.00 Acute cystitis without hematuria (principal); H60.92 Unspecified otitis externa, left ear
CPT/HCPCS: 36415; 80048; 81001; 83735; 85025; 85045; 85610; 96372; 99283; A9270; J1885

== ENCOUNTER 2019-04-08 13:28 | Inpatient (IN) | payer MEDICARE, OTHER ==
[2019-04-08] MEDS ORDERED: ClonazePAM 0.5 MG Tab PO PRN (16:00)
[2019-04-08] MEDS ORDERED: Ondansetron 4 MG Tab.DIS PO PRN (16:30)
[2019-04-08] MEDS: Gabapentin 600 MG Tab PO SCH ×2 (17:12→20:56)
[2019-04-08] MEDS: Pantoprazole 40 MG Tab.CR PO SCH (17:13)
[2019-04-08] MEDS: tiZANidine 4 MG Tab PO SCH ×2 (17:15→20:56)
[2019-04-08] MEDS: Acetaminophen 500 MG Tab PO SCH ×2 (17:15→20:56)
[2019-04-08] MEDS: oxyCODONE 5 MG Tab PO PRN (17:16)
[2019-04-08] MEDS: atorvaSTATin 40 MG Tab PO SCH (20:56)
[2019-04-08] MEDS: Finasteride 5 MG Tab PO SCH (20:56)
[2019-04-08] MEDS: Melatonin 3 MG Tab PO SCH (20:57)
[2019-04-08] MEDS: Fluticasone Propionate Nasal Spray 16 GM Bottle NASBOTH SCH (22:26)
[2019-04-09] MEDS: oxyCODONE 5 MG Tab PO PRN ×3 (04:03→21:29)
[2019-04-09] MEDS: Pantoprazole 40 MG Tab.CR PO SCH ×2 (06:24→18:07)
--- NOTE | 2019-04-09 08:19 | PCM.HP ---
H&P History of Present Illness - General Date of Service: 04/09/19 Admit Problem/Dx: Admission Diagnosis/Problem Admission Diagnosis/Problem Anemia Source of Information: Patient History Limitations: Reports: No Limitations - History of Present Illness Initial Comments - Free Text/Narative: 83 yo male admitted for generalized weakness,s/p lumbar fusion robotic surgery last month. He has mild anemia,DM,HTN,Fibromyalgia ,sinus bradycardia and and h/ o CAD s/p CABG. He was re admitted at [place] after the surgery with the fatigue and weakness,but after neurosurgical consultation,it was determined that he needed more rehab. As such,he is being admitted to for strengthening, PT and OT before discharge to home. Lower Back Pain Score (Numeric/FACES): 6 - Related Data Allergies/Adverse Reactions: Allergies Allergy/AdvReac Type Severity Reaction Status Date / Time No Known Allergies Allergy Verified 04/02/19 20:53 Home Medications: Home Meds Sertraline [Zoloft] 100 mg PO DAILY 07/30/16 [History] ClonazePAM [KlonoPIN] 0.5 mg PO BID PRN 06/03/17 [History] Finasteride 5 mg PO BEDTIME 06/03/17 [History] Tamsulosin [Flomax] 0.4 mg PO DAILY 06/03/17 [History] atorvaSTATin [Lipitor] 40 mg PO BEDTIME 06/03/17 [History] metFORMIN [Glucophage] 850 mg PO BIDMEALS #180 tablet 06/10/17 [Rx] oxyCODONE 5 mg PO Q4H PRN 04/02/19 [History] Acetaminophen 1,000 mg PO TID 04/08/19 [History] Aspirin [Aspirin EC] 325 mg PO DAILY 04/08/19 [History] Fluticasone Propionate [Flonase] 1 spray NASBOTH BID 04/08/19 [History] Gabapentin [Neurontin] 600 mg PO TID 04/08/19 [History] Loratadine 10 mg PO DAILY 04/08/19 [History] Melatonin 9 mg PO BEDTIME 04/08/19 [History] Omeprazole 20 mg PO BIDAC 04/08/19 [History] Ondansetron HCl [Ondansetron] 4 mg PO TID PRN 04/08/19 [History] Propranolol HCl [Propranolol HCl ER] 120 mg PO DAILY 04/08/19 [History] Sennosides/Docusate Sodium [Senna-Docusate Sodium Tablet] 1 tab PO BID 04/08/19 [History] tiZANidine [Zanaflex] 2 mg PO TID 04/08/19 [History] Past Medical History HEENT History: Reports: Cataract, Epistaxis, Impaired Vision, Sinusitis Cardiovascular History: Reports: Angina, Arrhythmia, CAD, Heart Failure, High Cholesterol, Hypertension, [place] Respiratory History: Reports: SOB, Other (See Below) Other Respiratory History: 2 X'S PNEUMONIA Gastrointestinal History: Reports: GERD, Hemorrhoids Genitourinary History: Reports: Prostate Disorder, Other (See Below) Other Genitourinary History: hx prostate CA Musculoskeletal History: Reports: Back Pain, Chronic Neurological History: Reports: Other (See Below) Other Neuro History: TREMORS Endocrine/Metabolic History: Reports: Diabetes, Type II, Obesity/BMI 30+ Hematologic History: Reports: Blood Transfusion(s) Oncologic (Cancer) History: Reports: Squamous Cell Carcinoma, Other (See Below) Other Oncologic History: 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 VOICED SOME EYE SURGERIES ALSO ON EYE LIDS. Cardiovascular Surgical History: Reports: Coronary Artery Bypass Respiratory Surgical History: Reports: None GI Surgical History: Reports: Appendectomy, Cholecystectomy, Colonoscopy, EGD, Hernia Repair/Other Male Surgical History: Reports: Other (See Below) Other Endocrine Surgeries/Procedures: PT ON PILLS FOR DIABETES Neurological Surgical History: Reports: Laminectomy Musculoskeletal Surgical History: Reports: Hip Replacement, Other (See Below) Other Musculoskeletal Surgeries/Procedures:: LAMINECTOMY ON BACK Other Oncologic Surgeries/Procedures: REMOVED THE SPOT OFF LEFT HAND Social & Family History - Family History Family Medical History: Noncontributory - Tobacco Use Smoking Status *Q: Former Smoker Used Tobacco, but Quit: Yes Month/Year Tobacco Last Used: 1968 Second Hand Smoke Exposure: No - Caffeine Use Caffeine Use: Reports: Coffee, Tea - Alcohol Use Days Per Week of Alcohol Use: 1 Number of Drinks Per Day: 1 Total Drinks Per Week: 1 - Recreational Drug Use Recreational Drug Use: No H&P Review of Systems - Review of Systems: Review Of Systems: ROS reveals no pertinent complaints other than HPI. Exam - Exam Exam: See Below - Vital Signs Vital Signs: Last Vital Signs Temp 98.4 F 04/08/19 15:57 Pulse 60 04/08/19 15:57 Resp 20 04/08/19 15:57 BP 138/53 L 04/08/19 15:57 Pulse Ox 100 04/08/19 15:57 Weight: 87.044 kg - Patient Data Lab Results Last 24 hrs: Laboratory Results - last 24 hr 04/08/19 04/09/19 Range/Units 17:09 06:23 POC Glucose 137 H 147 H (80-116) mg/dL - Problem List (1) General weakness SNOMED Code(s): 39592432 ICD Code: R53.1 - WEAKNESS Status: Acute Current Visit: Yes (2) Anemia due to blood loss, acute SNOMED Code(s): 789753188 ICD Code: D62 - ACUTE POSTHEMORRHAGIC ANEMIA Status: Acute Current Visit : No (3) S/P lumbar fusion SNOMED Code(s): 11119396529276, 00071413, 12518863268588 ICD Code: Z98.1 - ARTHRODESIS STATUS Status: Acute Current Visit: Yes (4) Mood disorder SNOMED Code(s): 59566437 ICD Code: F39 - UNSPECIFIED MOOD [AFFECTIVE] DISORDER Status: Chronic Current Visit: Yes (5) Diabetes mellitus SNOMED Code(s): 51563834 ICD Code: E11.9 - TYPE 2 DIABETES MELLITUS WITHOUT COMPLICATIONS Status: Chronic Current Visit: Yes Qualifiers: Diabetes mellitus type: type 2 Diabetes mellitus terminal supervisor insulin use: without terminal supervisor use (6) Sinus bradycardia SNOMED Code(s): 18439740 ICD Code: R00.1 - BRADYCARDIA, UNSPECIFIED Status: Chronic Current Visit : Yes (7) HLD (hyperlipidemia) SNOMED Code(s): 48936205 ICD Code: E78.5 - HYPERLIPIDEMIA, UNSPECIFIED Status: Acute Current Visit : No Qualifiers: (8) CAD (coronary artery disease) SNOMED Code(s): 32344506 ICD Code: I25.10 - ATHSCL HEART DISEASE OF [place] CORONARY ARTERY W/O ANG PCTRS Status: Chronic Current Visit: No Qualifiers: Coronary Disease-Associated Artery/Lesion type: bypass graft (9) HTN (hypertension) SNOMED Code(s): 23146336 ICD Code: I10 - ESSENTIAL (PRIMARY) HYPERTENSION Status: Chronic Current Visit: No Qualifiers: Hypertension type: essential hypertension Qualified Code(s): I10 - Essential (primary) hypertension (10) S/P CABG (coronary artery bypass graft) SNOMED Code(s): 396167923, 980108053, 035085971 ICD Code: Z95.1 - PRESENCE OF AORTOCORONARY BYPASS GRAFT Status: Chronic Current Visit: No (11) Fibromyalgia SNOMED Code(s): 135680076 ICD Code: M79.7 - FIBROMYALGIA Status: Acute Current Visit: Yes Problem List Initiated/Reviewed/Updated: Yes Orders Last 24hrs: Active Orders 24 hr Category Date Time Status Patient Status [ADT] Routine ADT 04/08/19 15:57 Active Accu Check [Blood Glucose Check, Bedside] [RC] 07,17 Care 04/08/19 16:00 Active Activity as Tolerated [RC] .Routine Care 04/08/19 19:23 Active Height and Weight [RC] .WED Care 04/08/19 15:57 Active Oxygen Therapy [RC] PRN Care 04/08/19 15:57 Active Vital Signs [RC] 08 Care 04/08/19 15:57 Active OT Evaluation and Treatment [CONS] Routine Cons 04/08/19 15:57 Active PT Evaluation and Treatment [CONS] Routine Cons 04/08/19 15:57 Active Acetaminophen [Tylenol Extra Strength] Med 04/08/19 16:30 Active 1,000 mg PO TID Aspirin [Ecotrin] Med 04/09/19 09:00 Active 325 mg PO DAILY ClonazePAM [KlonoPIN] Med 04/08/19 16:00 Active 0.5 mg PO BID PRN Docusate Sodium/Sennosides [Senna Plus] Med 04/08/19 21:00 Active 1 tab PO BID Finasteride [Proscar] Med 04/08/19 21:00 Active 5 mg PO BEDTIME Fluticasone Propionate [Flonase] Med 04/08/19 21:00 Active 0 gm NASBOTH BID Gabapentin [Neurontin] Med 04/08/19 16:30 Active 600 mg PO TID Loratadine [Claritin] Med 04/09/19 09:00 Active 10 mg PO DAILY Melatonin Med 04/08/19 21:00 Active 9 mg PO BEDTIME Ondansetron [Zofran ODT] Med 04/08/19 16:30 Active 4 mg PO TID PRN Pantoprazole [ProTONIX] Med 04/08/19 17:00 Active 40 mg PO BID@0600,1700 Propranolol [Inderal LA] Med 04/09/19 09:00 Active 120 mg PO DAILY Sertraline [Zoloft] Med 04/09/19 09:00 Active 100 mg PO DAILY Tamsulosin [Flomax] Med 04/09/19 09:00 Active 0.4 mg PO DAILY atorvaSTATin [Lipitor] Med 04/08/19 21:00 Active 40 mg PO BEDTIME metFORMIN [Glucophage] Med 04/08/19 18:00 Active 850 mg PO BIDMEALS oxyCODONE Med 04/08/19 16:00 Active 5 mg PO Q4H PRN tiZANidine [Zanaflex] Med 04/08/19 16:30 Active 2 mg PO TID Code Status [Resuscitation Status] Routine Resus Stat 04/08/19 22:38 Ordered Medication Orders Acetaminophen (Tylenol Extra Strength) 1,000 mg PO TID [facility] Last Admin: 04/08/19 20:56 Dose: 1,000 mg Admin: 04/08/19 17:15 Dose: 1,000 mg Aspirin (Ecotrin) 325 mg PO DAILY [facility] Atorvastatin Calcium (Lipitor) 40 mg PO BEDTIME [facility] Last Admin: 04/08/19 20:56 Dose: 40 mg Clonazepam (Klonopin) 0.5 mg PO BID PRN PRN Reason: TREMORS Finasteride (Proscar) 5 mg PO BEDTIME [facility] Last Admin: 04/08/19 20:56 Dose: 5 mg Fluticasone Propionate (Flonase) 0 gm NASBOTH BID [facility] Last Admin: 04/08/19 22:26 Dose: Gabapentin (Neurontin) 600 mg PO TID [facility] Last Admin: 04/08/19 20:56 Dose: 600 mg Admin: 04/08/19 17:12 Dose: 600 mg Loratadine (Claritin) 10 mg PO DAILY [facility] Melatonin (Melatonin) 9 mg PO BEDTIME [facility] Last Admin: 04/08/19 20:57 Dose: 9 mg Metformin HCl (Glucophage) 850 mg PO BIDMEALS [facility] Last Admin: 04/08/19 17:17 Dose: 850 mg Ondansetron HCl (Zofran Odt) 4 mg PO TID PRN PRN Reason: NAUSEA/VOMITING Oxycodone HCl (Oxycodone) 5 mg PO Q4H PRN PRN Reason: MODERATE/SEVERE Pain Last Admin: 04/09/19 04:03 Dose: 5 mg Admin: 04/08/19 17:16 Dose: 5 mg Pantoprazole Sodium (Protonix) 40 mg PO BID@0600,1700 [facility] Last Admin: 04/09/19 06:24 Dose: 40 mg Admin: 04/08/19 17:13 Dose: 40 mg Propranolol HCl (Inderal La) 120 mg PO DAILY [facility] Senna/Docusate Sodium (Senna Plus) 1 tab PO BID [facility] Last Admin: 04/08/19 20:56 Dose: 1 tab Sertraline HCl (Zoloft) 100 mg PO DAILY [facility] Tamsulosin HCl (Flomax) 0.4 mg PO DAILY [facility] Tizanidine HCl (Zanaflex) 2 mg PO TID [facility] Last Admin: 04/08/19 20:56 Dose: 2 mg Admin: 04/08/19 17:15 Dose: 2 mg Assessment/Plan Comment:: Admit to Swing Bed with routine orders,and PT /OT. He would like to return to his baseline,in pain control and movement
[2019-04-09] MEDS: Acetaminophen 500 MG Tab PO SCH ×3 (09:08→21:32)
[2019-04-09] MEDS: Aspirin 325 MG Tab.EC PO SCH (09:08)
[2019-04-09] MEDS: tiZANidine 4 MG Tab PO SCH ×3 (09:08→21:32)
[2019-04-09] MEDS: Propranolol 60 MG Cap.ER PO SCH (09:08)
[2019-04-09] MEDS: Loratadine 10 MG Tab PO SCH (09:09)
[2019-04-09] MEDS: Tamsulosin 0.4 MG Cap.ER PO SCH (09:09)
[2019-04-09] MEDS: Sertraline 100 MG Tab PO SCH (09:14)
[2019-04-09] MEDS: Gabapentin 600 MG Tab PO SCH ×3 (09:21→21:33)
[2019-04-09] MEDS: Fluticasone Propionate Nasal Spray 16 GM Bottle NASBOTH SCH ×2 (09:21→21:30)
[2019-04-09] MEDS: atorvaSTATin 40 MG Tab PO SCH (21:31)
[2019-04-09] MEDS: Melatonin 3 MG Tab PO SCH (21:31)
[2019-04-09] MEDS: Finasteride 5 MG Tab PO SCH (21:32)
[2019-04-10] MEDS: oxyCODONE 5 MG Tab PO PRN ×2 (02:22→06:38)
[2019-04-10] MEDS: Pantoprazole 40 MG Tab.CR PO SCH ×2 (06:39→17:03)
[2019-04-10] MEDS: Loratadine 10 MG Tab PO SCH (08:17)
[2019-04-10] MEDS: Tamsulosin 0.4 MG Cap.ER PO SCH (08:18)
[2019-04-10] MEDS: Aspirin 325 MG Tab.EC PO SCH (08:18)
[2019-04-10] MEDS: Fluticasone Propionate Nasal Spray 16 GM Bottle NASBOTH SCH ×2 (08:18→20:47)
[2019-04-10] MEDS: Propranolol 60 MG Cap.ER PO SCH (08:18)
[2019-04-10] MEDS: tiZANidine 4 MG Tab PO SCH (08:19)
[2019-04-10] MEDS: Acetaminophen 500 MG Tab PO SCH (08:19)
[2019-04-10] MEDS: Sertraline 100 MG Tab PO SCH (08:20)
[2019-04-10] MEDS: Gabapentin 600 MG Tab PO SCH ×2 (08:24→08:26)
[2019-04-10] MEDS: Acetaminophen/HYDROcodone 325-5 MG Tab PO PRN ×3 (12:06→22:54)
[2019-04-10] MEDS: Gabapentin 300 MG Cap PO SCH ×2 (13:19→20:48)
[2019-04-10] MEDS: Acetaminophen 325 MG Tab PO SCH ×2 (13:21→20:49)
[2019-04-10] MEDS ORDERED: Gabapentin 100 MG Cap PO SCH (14:00)
[2019-04-10] MEDS: Melatonin 3 MG Tab PO SCH (20:48)
[2019-04-10] MEDS: atorvaSTATin 40 MG Tab PO SCH (20:48)
[2019-04-10] MEDS: Finasteride 5 MG Tab PO SCH (20:48)
[2019-04-10] MEDS: ClonazePAM 0.5 MG Tab PO SCH (20:48)
[2019-04-10] MEDS: tiZANidine 4 MG Tab PO PRN (23:24)
[2019-04-11] MEDS: Aluminum Hydroxide/Magnesium Hydroxide Susp 30 ML Cup PO PRN ×2 (00:30→20:36)
[2019-04-11] MEDS: Acetaminophen/HYDROcodone 325-5 MG Tab PO PRN (03:31)
[2019-04-11] MEDS: Pantoprazole 40 MG Tab.CR PO SCH ×2 (06:00→17:48)
[2019-04-11] MEDS: Fluticasone Propionate Nasal Spray 16 GM Bottle NASBOTH SCH ×2 (08:39→20:39)
[2019-04-11] MEDS: Loratadine 10 MG Tab PO SCH (08:39)
[2019-04-11] MEDS: Aspirin 325 MG Tab.EC PO SCH (08:39)
[2019-04-11] MEDS: Tamsulosin 0.4 MG Cap.ER PO SCH (08:39)
[2019-04-11] MEDS: Propranolol 60 MG Cap.ER PO SCH (08:40)
[2019-04-11] MEDS: Gabapentin 300 MG Cap PO SCH ×3 (08:40→20:39)
[2019-04-11] MEDS: ClonazePAM 0.5 MG Tab PO SCH ×2 (08:40→20:39)
[2019-04-11] MEDS: Acetaminophen 325 MG Tab PO SCH ×3 (08:40→20:40)
[2019-04-11] MEDS: Sertraline 100 MG Tab PO SCH (08:41)
[2019-04-11] MEDS: oxyCODONE 5 MG Tab PO PRN ×2 (11:40→17:47)
[2019-04-11] MEDS: atorvaSTATin 40 MG Tab PO SCH (20:39)
[2019-04-11] MEDS: Melatonin 3 MG Tab PO SCH (20:39)
[2019-04-11] MEDS: Finasteride 5 MG Tab PO SCH (20:40)
[2019-04-12] MEDS: oxyCODONE 5 MG Tab PO PRN ×3 (00:56→23:22)
[2019-04-12] MEDS: Pantoprazole 40 MG Tab.CR PO SCH ×2 (05:35→18:30)
[2019-04-12] MEDS: Loratadine 10 MG Tab PO SCH (09:11)
[2019-04-12] MEDS: Aspirin 325 MG Tab.EC PO SCH (09:11)
[2019-04-12] MEDS: Tamsulosin 0.4 MG Cap.ER PO SCH (09:11)
[2019-04-12] MEDS: ClonazePAM 0.5 MG Tab PO SCH ×2 (09:12→20:13)
[2019-04-12] MEDS: Fluticasone Propionate Nasal Spray 16 GM Bottle NASBOTH SCH ×2 (09:12→20:12)
[2019-04-12] MEDS: Propranolol 60 MG Cap.ER PO SCH (09:12)
[2019-04-12] MEDS: Gabapentin 300 MG Cap PO SCH (09:12)
[2019-04-12] MEDS: Acetaminophen 325 MG Tab PO SCH ×3 (09:13→20:15)
[2019-04-12] MEDS: Sertraline 100 MG Tab PO SCH (09:14)
[2019-04-12] MEDS: Aluminum Hydroxide/Magnesium Hydroxide Susp 30 ML Cup PO PRN (09:17)
[2019-04-12] MEDS: Gabapentin 100 MG Cap PO SCH ×2 (14:49→20:14)
[2019-04-12] MEDS: Melatonin 3 MG Tab PO SCH (20:13)
[2019-04-12] MEDS: atorvaSTATin 40 MG Tab PO SCH (20:13)
[2019-04-12] MEDS: Finasteride 5 MG Tab PO SCH (20:14)
[2019-04-13] MEDS: Pantoprazole 40 MG Tab.CR PO SCH ×2 (05:33→16:12)
[2019-04-13] MEDS: oxyCODONE 5 MG Tab PO PRN ×3 (06:00→23:46)
[2019-04-13 06:11] VITALS: PULSE 52
[2019-04-13] MEDS: Loratadine 10 MG Tab PO SCH (09:22)
[2019-04-13] MEDS: Aspirin 325 MG Tab.EC PO SCH (09:22)
[2019-04-13] MEDS: Propranolol 60 MG Cap.ER PO SCH (09:23)
[2019-04-13] MEDS: Acetaminophen 325 MG Tab PO SCH ×3 (09:23→20:59)
[2019-04-13] MEDS: Sertraline 100 MG Tab PO SCH (09:23)
[2019-04-13] MEDS: Tamsulosin 0.4 MG Cap.ER PO SCH (09:23)
[2019-04-13] MEDS: Fluticasone Propionate Nasal Spray 16 GM Bottle NASBOTH SCH ×2 (09:23→20:54)
[2019-04-13] MEDS: ClonazePAM 0.5 MG Tab PO SCH ×2 (09:26→20:59)
[2019-04-13] MEDS: Gabapentin 100 MG Cap PO SCH ×3 (09:27→20:59)
[2019-04-13] MEDS: Melatonin 3 MG Tab PO SCH (20:59)
[2019-04-13] MEDS: atorvaSTATin 40 MG Tab PO SCH (20:59)
[2019-04-13] MEDS: Finasteride 5 MG Tab PO SCH (20:59)
[2019-04-14] MEDS: tiZANidine 4 MG Tab PO PRN (01:50)
[2019-04-14] MEDS: Pantoprazole 40 MG Tab.CR PO SCH (05:39)
[2019-04-14] MEDS: oxyCODONE 5 MG Tab PO PRN (05:42)
[2019-04-14] MEDS: Loratadine 10 MG Tab PO SCH (08:45)
[2019-04-14] MEDS: Aspirin 325 MG Tab.EC PO SCH (08:45)
[2019-04-14] MEDS: Fluticasone Propionate Nasal Spray 16 GM Bottle NASBOTH SCH (08:45)
[2019-04-14] MEDS: Gabapentin 100 MG Cap PO SCH (08:45)
[2019-04-14] MEDS: Tamsulosin 0.4 MG Cap.ER PO SCH (08:45)
[2019-04-14] MEDS: Sertraline 100 MG Tab PO SCH (08:46)
[2019-04-14] MEDS: Acetaminophen 325 MG Tab PO SCH (08:46)
[2019-04-14] MEDS: Propranolol 60 MG Cap.ER PO SCH (08:46)
[2019-04-14] MEDS: ClonazePAM 0.5 MG Tab PO SCH (08:51)
[2019-04-14 10:44] VITALS: BP 129/58
--- NOTE | 2019-04-14 10:58 | PCM.DCSUM1 ---
Discharge Summary - Hospital Course HPI Initial Comments: 83 yo male admitted for generalized weakness,s/p lumbar fusion robotic surgery last month. He has mild anemia,DM,HTN,Fibromyalgia ,sinus bradycardia and and h/ o CAD s/p CABG. He was readmitted at [place] after the surgery with the fatigue and weakness,but after neurosurgical consultation,it was determined that he needed more rehab. As such,he is being admitted to for strengthening,PT and OT before discharge to home. Diagnosis: Stroke: No - Discharge Data Discharge Date: 04/14/19 Discharge Disposition: Home, Self-Care 01 Condition: Good - Patient Summary/Data Consults: Consultations 04/08/19 15:57 OT Evaluation and Treatment [CONS] Routine Please Evaluate and Treat. OT Reason for Consult: ADL's This query below is only for informational purposes and is not editable. PT Evaluation and Treatment [CONS] Routine Please Evaluate and Treat. PT Reason for Consult: Ambulation This query below is only for informational purposes and is not editable. Hospital Course: Patient worked with PT/OT met set goals for discharge. At patient request, tried to switch back to hydrocodone/APAP for pain control but this was not tolerated so went back to oxycodone 5 mg q4 h with Tylenol and his pain was more tolerable and able to complete PT/OT. Patient has been up in the halls ambulating with front wheel walker on his own, doing quite well. On morning of discharge he noticed his urine being more cloudy, due to his prostate cancer he states he can't feel when he urinates so usually goes by change in color or increased incontinence, so urine was obtained, showed rare bacteria, negative nitrates/LE but no signs of infection. Patient has all his medications at home and not requiring any prescriptions to go home. - Patient Instructions Diet: Diabetic Diet Notify Provider of: Fever, Increased Pain Other/Special Instructions: Follow up with Dr Mueller as previously scheduled. - Discharge Plan *PRESCRIPTION DRUG MONITORING PROGRAM REVIEWED*: Yes *COPY OF PRESCRIPTION DRUG MONITORING REPORT IN PATIENT LYNN: Yes Home Medications: Home Meds Sertraline [Zoloft] 100 mg PO DAILY 07/30/16 [History] ClonazePAM [KlonoPIN] 0.5 mg PO BID PRN 06/03/17 [History] Finasteride 5 mg PO BEDTIME 10/02/17 [History] Tamsulosin [Flomax] 0.4 mg PO DAILY 06/03/17 [History] atorvaSTATin [Lipitor] 40 mg PO BEDTIME 06/03/17 [History] metFORMIN [Glucophage] 850 mg PO BIDMEALS #180 tablet 06/10/17 [Rx] oxyCODONE 5 mg PO Q4H PRN 04/02/19 [History] Acetaminophen 1,000 mg PO TID 04/08/19 [History] Aspirin [Aspirin EC] 325 mg PO DAILY 04/08/19 [History] Fluticasone Propionate [Flonase] 1 spray NASBOTH BID 04/08/19 [History] Loratadine 10 mg PO DAILY 04/08/19 [History] Melatonin 9 mg PO BEDTIME 04/08/19 [History] Omeprazole 20 mg PO BIDAC 04/08/19 [History] Ondansetron HCl [Ondansetron] 4 mg PO TID PRN 04/08/19 [History] Propranolol HCl [Propranolol HCl ER] 120 mg PO DAILY 04/08/19 [History] Sennosides/Docusate Sodium [Senna-Docusate Sodium Tablet] 1 tab PO BID 04/08/19 [History] tiZANidine [Zanaflex] 2 mg PO TID 04/08/19 [History] Patient Handouts: Chronic Pain, Adult - Discharge Summary/Plan Comment DC Time >30 min.: Yes - Patient Data Vitals - Most Recent: Last Vital Signs Temp 36.6 C 04/14/19 08:47 Pulse 52 L 04/14/19 08:47 Resp 18 04/14/19 08:47 BP 129/58 L 04/14/19 08:47 Pulse Ox 98 04/14/19 08:47 Weight - Most Recent: 87.044 kg Lab Results - Last 24 hrs: Laboratory Results - last 24 hr 04/13/19 04/13/19 04/14/19 Range/Units 17:48 21:08 05:44 POC Glucose 150 H 110 113 (80-116) mg/dL Urine Color (YELLOW) Urine Appearance (CLEAR) Urine pH (5.0-6.5) Ur Specific Sage (1.010-1.025) Urine Protein (NEGATIVE) mg/dL Urine Glucose (UA) (NORMAL) mg/dL Urine Ketones (NEGATIVE) mg/dL Urine Occult Blood (NEGATIVE) Urine Nitrite (NEGATIVE) Urine Bilirubin (NEGATIVE) Urine Urobilinogen (NEGATIVE) mg/dL Ur Leukocyte Esterase (NEGATIVE) Ur Squamous Epith Cells (NS,R,O) Urine Bacteria (NS) 04/14/19 Range/Units 09:35 POC Glucose (80-116) mg/dL Urine Color Yellow (YELLOW) Urine Appearance Clear (CLEAR) Urine pH 7.0 H (5.0-6.5) Ur Specific Sage 1.010 (1.010-1.025) Urine Protein Negative (NEGATIVE) mg/dL Urine Glucose (UA) Normal (NORMAL) mg/dL Urine Ketones Negative (NEGATIVE) mg/dL Urine Occult Blood Negative (NEGATIVE) Urine Nitrite Negative (NEGATIVE) Urine Bilirubin Negative (NEGATIVE) Urine Urobilinogen Normal (NEGATIVE) mg/dL Ur Leukocyte Esterase Negative (NEGATIVE) Ur Squamous Epith Cells Rare (NS,R,O) Urine Bacteria Rare H (NS) Med Orders - Current: Current Medications Acetaminophen (Tylenol) 650 mg PO TID [facility] Last Admin: 04/14/19 08:46 Dose: 650 mg Al Hydroxide/Mg Hydroxide (Mag-Al Susp) 15 ml PO Q2H PRN PRN Reason: Heartburn Last Admin: 04/12/19 09:17 Dose: 15 ml Aspirin (Ecotrin) 325 mg PO DAILY [facility] Last Admin: 04/14/19 08:45 Dose: 325 mg Atorvastatin Calcium (Lipitor) 40 mg PO BEDTIME [facility] Last Admin: 04/13/19 20:59 Dose: 40 mg Clonazepam (Klonopin) 0.5 mg PO BID [facility] Last Admin: 04/14/19 08:51 Dose: 0.5 mg Finasteride (Proscar) 5 mg PO BEDTIME [facility] Last Admin: 04/13/19 20:59 Dose: 5 mg Fluticasone Propionate (Flonase) 0 gm NASBOTH BID [facility] Last Admin: 04/14/19 08:45 Dose: 1 spray Loratadine (Claritin) 10 mg PO DAILY [facility] Last Admin: 04/14/19 08:45 Dose: 10 mg Melatonin (Melatonin) 9 mg PO BEDTIME [facility] Last Admin: 04/13/19 20:59 Dose: 9 mg Metformin HCl (Glucophage) 850 mg PO BIDMEALS [facility] Last Admin: 04/14/19 08:45 Dose: 850 mg Ondansetron HCl (Zofran Odt) 4 mg PO TID PRN PRN Reason: NAUSEA/VOMITING Oxycodone HCl (Oxycodone) 5 mg PO Q4H PRN PRN Reason: moderate back pain Last Admin: 04/14/19 05:42 Dose: 5 mg Pantoprazole Sodium (Protonix) 40 mg PO BID@0600,1700 [facility] Last Admin: 04/14/19 05:39 Dose: 40 mg Propranolol HCl (Inderal La) 120 mg PO DAILY [facility] Last Admin: 04/14/19 08:46 Dose: 120 mg Senna/Docusate Sodium (Senna Plus) 1 tab PO BID [facility] Last Admin: 04/14/19 08:45 Dose: 1 tab Sertraline HCl (Zoloft) 100 mg PO DAILY [facility] Last Admin: 04/14/19 08:46 Dose: 100 mg Tamsulosin HCl (Flomax) 0.4 mg PO DAILY [facility] Last Admin: 04/14/19 08:45 Dose: 0.4 mg Tizanidine HCl (Zanaflex) 2 mg PO TID PRN PRN Reason: muscle spasms Last Admin: 04/14/19 01:50 Dose: 2 mg Discontinued Medications Acetaminophen (Tylenol Extra Strength) 1,000 mg PO TID [facility] Last Admin: 04/10/19 08:19 Dose: 1,000 mg Hydrocodone Bitart/Acetaminophen (Brogan 325-5 Mg) 1 tab PO Q4H PRN PRN Reason: moderate pain Last Admin: 04/11/19 03:31 Dose: 1 tab Clonazepam (Klonopin) 0.5 mg PO BID PRN PRN Reason: TREMORS Last Admin: 04/10/19 08:44 Dose: 0.5 mg Gabapentin (Neurontin) 600 mg PO TID [facility] Last Admin: 04/10/19 08:26 Dose: Not Given Gabapentin (Neurontin) 300 mg PO TID [facility] Stop: 04/12/19 09:01 Last Admin: 04/12/19 09:12 Dose: 300 mg Gabapentin (Neurontin) 100 mg PO TID [facility] Stop: 04/12/19 09:01 Gabapentin (Neurontin) 100 mg PO TID [facility] Stop: 04/14/19 09:01 Last Admin: 04/14/19 08:45 Dose: 100 mg Oxycodone HCl (Oxycodone) 5 mg PO Q4H PRN PRN Reason: MODERATE/SEVERE Pain Last Admin: 04/10/19 06:38 Dose: 5 mg Tizanidine HCl (Zanaflex) 2 mg PO TID [facility] Last Admin: 04/10/19 08:19 Dose: 2 mg - Exam General: Reports: Alert, Oriented, Cooperative Lungs: Reports: Clear to Auscultation, Normal Respiratory Effort Cardiovascular: Reports: Regular Rate, Regular Rhythm GI/Abdominal Exam: Normal Bowel Sounds, Soft, Non-Tender, No Distention
== END 2019-04-14 12:40 | disposition home or self-care (01) | DRG 948 ==
LOC: FB.MS 15:09
PROVIDERS: ADMIT Family Medicine; ATTEND Family Medicine
DX: R53.1 Weakness (principal); D62 Acute posthemorrhagic anemia; Z98.1 Arthrodesis status; E11.9 Type 2 diabetes mellitus without complications; M79.7 Fibromyalgia; I25.10 Atherosclerotic heart disease of native coronary artery without angina pectoris; Z95.1 Presence of aortocoronary bypass graft; H54.7 Unspecified visual loss; I11.0 Hypertensive heart disease with heart failure; I50.9 Heart failure, unspecified; E78.5 Hyperlipidemia, unspecified; Z85.46 Personal history of malignant neoplasm of prostate; Z85.820 Personal history of malignant melanoma of skin; K21.9 Gastro-esophageal reflux disease without esophagitis; G89.29 Other chronic pain; R32 Unspecified urinary incontinence; M54.9 Dorsalgia, unspecified; R25.1 Tremor, unspecified; Z79.899 Other long term (current) drug therapy; Z98.42 Cataract extraction status, left eye; Z98.41 Cataract extraction status, right eye; Z96.649 Presence of unspecified artificial hip joint; Z87.891 Personal history of nicotine dependence; Z79.84 Long term (current) use of oral hypoglycemic drugs; Z79.82 Long term (current) use of aspirin; R00.1 Bradycardia, unspecified
CPT/HCPCS: 36415; 80048; 81001; 82962; 85025; 97110-GO; 97110-GP; 97116-GP; 97161-GP; 97166-GO; 97530-GO; 97535-GO; 97760-GO; A9270-GY